=== PATIENT | male | born 1995 | race Two or more races ===

== ENCOUNTER 2021-11-21 10:53 | Outpatient (CLI) | payer OTHER | END 2021-11-21 10:59 | disposition home or self-care (01) | LOC: RAD 10:53 | PROVIDERS: ATTEND Chiropractor | DX: M99.03 Segmental and somatic dysfunction of lumbar region (principal); M99.01 Segmental and somatic dysfunction of cervical region ==

== ENCOUNTER 2023-05-11 11:33 | Outpatient (CLI) | payer OTHER | END 2023-05-11 15:09 | disposition home or self-care (01) | LOC: RAD 11:33 | DX: M54.9 Dorsalgia, unspecified (principal); M54.50 Low back pain, unspecified ==